=== PATIENT | male | born 1985 | race African-American/Black ===

== ENCOUNTER 2019-05-17 16:49 | Observation (INO) ==
[2019-05-17] MEDS ORDERED: ONDANSETRON 4 MG/2 ML VIAL IV PRN (17:52)
[2019-05-17] MEDS ORDERED: DIPH/TET/ACEL PERT BOOSTER VACCINE 0.5 ML VIAL IM ONE (17:55)
[2019-05-17 18:03] LABS: Basophils % 0.3 % (0.0-0.8); Eosinophils # 0.1 10*3/uL (0.0-0.87); Eosinophils % 1.4 % (0.00-10.9); Hematocrit 46.3 VOL% (42.0-52.0); Hemoglobin 14.9 GM/DL (14.0-18.0); Immature Granulocytes % 0.2 %; Immature Granulocytes Absolute 0.01 #; Lymphocytes # 2.2 10*3/uL (1.4-4.0); Lymphocytes % 33.8 % (21.2-54.2); Mean Corpuscular HGB Conc 32.2 GM/DL (32-36); Mean Corpuscular Volume 90.4 FL (87-102); Mean Platelet Volume 11.6 FL (9.6-12.0); Monocytes % 7.5 % (1.7-12.7); Neutrophils % 56.8 % (38.7-73.9); Platelet Count 168 T/CUMM (130-400); Red Blood Count 5.12 MC/CUMM (3.8-5.5); Red Cell Distribution Width 12.8 % (9.3-17.3); White Blood Count 6.4 T/CUMM (4-12)
[2019-05-17 18:12] LABS: Alanine Aminotransferase 26 U/L (16-61); Albumin 3.9 G/DL (3.4-5.0); Alkaline Phosphatase 65 U/L (45-117); Aspartate Amino Transferase 22 U/L (0-37); Bilirubin,Total < 0.39 MG/DL (0.2-1.0); Blood Urea Nitrogen 19 MG/DL (7-18); Calcium 9.1 MG/DL (8.5-10.1); Estimated Glom Filtration Rate 136 ML/MIN; Glucose 115 MG/DL (74-106); Osmolality,Calculated 275.8 MOS/KG (273-304); Total Protein 7.6 G/DL (6.4-8.3)
[2019-05-17] MEDS: MORPHINE 4 MG/1 ML VIAL IV PRN ×2 (19:47→23:42)
[2019-05-18] MEDS: MORPHINE 4 MG/1 ML VIAL IV PRN (03:46)
[2019-05-18] MEDS: ceFAZolin 2,000 MG in PREMIX 1 EACH IV SCH ×3 (06:49→22:23)
[2019-05-18] MEDS ORDERED: LACTATED RINGERS 1,000 ML IV SCH (08:30)
[2019-05-18] MEDS ORDERED: propofoL 200 MG/20 ML VIAL IV ONE (09:17)
[2019-05-18] MEDS ORDERED: SEVOFLURANE 1 UNIT/15 MINUTE INH ONE (09:17)
[2019-05-18] MEDS ORDERED: LIDOCAINE 2% 5 ML VIAL ONE (09:17)
[2019-05-18] MEDS ORDERED: LACTATED RINGERS 1,000 ML IV ONE (09:18)
[2019-05-18] MEDS ORDERED: fentaNYL 100 MCG/2 ML VIAL ONE (09:18)
[2019-05-18] MEDS ORDERED: ONDANSETRON 4 MG/2 ML VIAL ONE (09:18)
[2019-05-18] MEDS ORDERED: DEXMEDETOMIDINE 200 MCG/2 ML VIAL ONE (09:18)
[2019-05-18] MEDS ORDERED: MIDAZOLAM 2 MG/2 ML VIAL ONE (09:18)
[2019-05-18] MEDS ORDERED: DEXAMETHASONE 4 MG/1 ML VIAL ONE (09:18)
[2019-05-18] MEDS ORDERED: HYDROmorphone 2 MG/1 ML VIAL IV PRN (09:49)
[2019-05-18] MEDS ORDERED: MORPHINE 4 MG/1 ML VIAL IV PRN (10:45)
[2019-05-18] MEDS: KETOROLAC 30 MG/1 ML VIAL IV PRN ×2 (12:20→19:46)
[2019-05-19] MEDS: KETOROLAC 30 MG/1 ML VIAL IV PRN (03:23)
[2019-05-19] MEDS: ceFAZolin 2,000 MG in PREMIX 1 EACH IV SCH (05:32)
[2019-05-19 16:49] VITALS: BP 152/74
== END 2019-05-19 12:12 | disposition home or self-care (01) ==
LOC: N.EDINP 16:49 → N.ED 16:49 → N.3E 18:27
PROVIDERS: ADMIT Orthopaedic Surgery; ATTEND Orthopaedic Surgery